=== PATIENT | male | born 1970 | race Caucasian/White ===

== ENCOUNTER → 2020-05-29 | Outpatient (CLI) | payer BC ==
[~2020-05-29] MED LIST: COLACE100 M1 PO; DAILY VALUE1 EACH PO; TUMS DUAL ACTIO1 CTB PO
== END ==
LOC: RAD 09:18
DX: N50.811 Right testicular pain (principal)

== ENCOUNTER 2020-12-17 09:48 | Emergency (ER) | payer BC ==
[~2020-12-17] VITALS: Ht 182.9 cm; Wt 95.8 kg
[2020-12-17 10:47] LABS: BASO # 0.03 K/mm3 (0.02-0.10); EOS # 0.05 K/mm3 (0.04-0.40); EOS % 0.3 % (0.0-4.0); HEMATOCRIT 50.5 % (42.0-52.0); HEMOGLOBIN 16.9 g/dL (13.5-18.0); LYMPH# 1.04 K/mm3 (1.50-4.00); MEAN CELL VOLUME 93 fl (78-100); MEAN CORPUSCULAR HEMOGLOBIN 31 pg (27-31); MEAN CORPUSCULAR HGB CONC 34 g/dL (33-37); MEAN PLATELET VOLUME 9.5 fl (7.4-10.4); MONO # 1.45 K/mm3 (0.20-0.80); NEU # 15.96 K/mm3 (1.40-6.50); PLATELET COUNT 139 K/mm3 (130-400); RED BLOOD COUNT 5.43 M/mm3 (4.20-5.60); RED CELL DISTRIBUTION WIDTH 12.2 % (11.5-14.5); WHITE BLOOD COUNT 18.6 K/mm3 (4.8-10.8)
[2020-12-17 10:54] LABS: POTASSIUM 3.7 mmol/L (3.5-5.1)
[2020-12-17 10:55] LABS: CALCIUM 10.1 mg/dL (8.3-10.5)
[2020-12-17 10:58] LABS: TOTAL BILIRUBIN 3.2 mg/dL (0.2-1.2)
[2020-12-17 12:31] LABS: URINE APPEARANCE HAZY; URINE COLOR YELLOW
[2020-12-17 12:32] LABS: URINE BILIRUBIN NEGATIVE (NEGATIVE); URINE BLOOD NEGATIVE (NEGATIVE); URINE GLUCOSE NEGATIVE (NEGATIVE); URINE KETONE 2+ (NEGATIVE); URINE LEUKOCYTE ESTERASE TRACE (NEGATIVE); URINE NITRATE NEGATIVE (NEGATIVE); URINE PROTEIN(semi-quant) NEGATIVE (NEGATIVE); URINE UROBILINOGEN NORMAL (NORMAL); URINE WBC 0-1 /hpf (0-3)
[2020-12-17 14:26] VITALS: BP 126/83
[2020-12-21] MEDS ORDERED: COLACE100 M1 PO (10:08)
== END 2020-12-17 14:40 | disposition short-term general hospital (02) ==
LOC: ED 09:48
PROVIDERS: Nurse Practitioner
DX: K57.80 Diverticulitis of intestine, part unspecified, with perforation and abscess without bleeding (principal); Z20.822 Contact with and (suspected) exposure to COVID-19
CPT/HCPCS: J1170; J2270; J2405; J2543; J3010; J7030; Q9967

== ENCOUNTER → 2020-12-24 | Outpatient (CLI) | payer BC ==
[2020-12-24 10:26] LABS: HEMATOCRIT 48.3 % (42.0-52.0); HEMOGLOBIN 16.4 g/dL (13.5-18.0); MEAN PLATELET VOLUME 8.8 fl (7.4-10.4); RED BLOOD COUNT 5.31 M/mm3 (4.20-5.60); RED CELL DISTRIBUTION WIDTH 11.7 % (11.5-14.5); WHITE BLOOD COUNT 6.3 K/mm3 (4.8-10.8)
[2020-12-24 10:30] LABS: ALBUMIN 4.1 g/dL (3.5-5.0); POTASSIUM 3.7 mmol/L (3.5-5.1)
[2020-12-24 10:33] LABS: TOTAL PROTEIN 7.3 g/dL (6.4-8.3)
[2020-12-24 10:35] LABS: TOTAL BILIRUBIN 0.8 mg/dL (0.2-1.2)
== END ==
LOC: LAB 09:55
PROVIDERS: Family Medicine
DX: K57.32 Diverticulitis of large intestine without perforation or abscess without bleeding (principal)

== ENCOUNTER → 2020-12-31 | Outpatient (CLI) | payer BC ==
[2020-12-31 10:00] LABS: HEMATOCRIT 49.4 % (42.0-52.0); MEAN PLATELET VOLUME 9.5 fl (7.4-10.4); RED BLOOD COUNT 5.46 M/mm3 (4.20-5.60); RED CELL DISTRIBUTION WIDTH 11.7 % (11.5-14.5); WHITE BLOOD COUNT 8.7 K/mm3 (4.8-10.8)
[2020-12-31 10:07] LABS: POTASSIUM 4.1 mmol/L (3.5-5.1)
[2020-12-31 10:09] LABS: TOTAL PROTEIN 6.9 g/dL (6.4-8.3)
[2020-12-31 10:11] LABS: TOTAL BILIRUBIN 0.8 mg/dL (0.2-1.2)
== END ==
LOC: LAB 09:38
DX: K57.20 Diverticulitis of large intestine with perforation and abscess without bleeding (principal)

== ENCOUNTER 2021-01-01 11:27 | Outpatient (RCR) | payer BC ==
[2020-12-21 10:09] VITALS: BP 129/84
[2020-12-22 10:27] VITALS: BP 135/102
[2020-12-23 09:54] VITALS: BP 126/85
[2020-12-24 10:02] VITALS: BP 129/90
[2020-12-25 10:09] VITALS: BP 112/81
[2020-12-26 10:01] VITALS: BP 115/86
[2020-12-27 09:56] VITALS: BP 117/91
[2020-12-28 09:38] VITALS: BP 119/81
[2020-12-29 09:41] VITALS: BP 115/87
[2020-12-29 10:14] VITALS: BP 118/80
[2020-12-30 09:49] VITALS: BP 115/84
[2020-12-31 09:54] VITALS: BP 121/88
[~2021-01-01] VITALS: Ht 182.9 cm; Wt 91.8 kg
[~2021-01-01 11:27] MED LIST changes: -DAILY VALUE1 EACH PO; -TUMS DUAL ACTIO1 CTB PO
[2021-01-01 11:30] VITALS: BP 123/85
[2021-01-01] MEDS ORDERED: DAILY VALUE1 EACH PO (14:04)
[2021-01-01] MEDS ORDERED: TUMS DUAL ACTIO1 CTB PO (14:04)
== END 2021-01-01 15:00 | disposition home or self-care (01) ==
LOC: AMSURD 11:27
DX: K57.32 Diverticulitis of large intestine without perforation or abscess without bleeding (principal)
CPT/HCPCS: J1335

== ENCOUNTER → 2021-07-15 | Outpatient (CLI) | payer BC ==
[~2021-07-15] MED LIST changes: +DAILY VALUE1 EACH PO; +TUMS DUAL ACTIO1 CTB PO
== END ==
LOC: RAD 16:45
DX: M25.512 Pain in left shoulder (principal)